=== PATIENT | female | born 1965 | race Caucasian/White ===

== ENCOUNTER → 2017-06-29 | Outpatient (CLI) | payer OTHER | END | disposition home or self-care (01) | LOC: US 09:40 | DX: M79.605 Pain in left leg (principal) | CPT/HCPCS: 93971 ==

== ENCOUNTER 2018-03-04 16:47 | Emergency (ER) | payer OTHER ==
[~2018-03-04] VITALS: Ht 154.9 cm; Wt 86.2 kg
[2018-03-04 17:00] VITALS: BP 170/81
[2018-03-04] MEDS ORDERED: SULF1TAB24 PO (17:13)
--- NOTE | 2018-03-04 17:13 | PHYS DOC ---
Adult General Chief Complaint Chief Complaint: INSECT BITE HPI HPI Patient is a 52-year-old female who presents with complaint of insect bite to her right thigh that she noticed yesterday. Patient states that today she noticed that she has a burning feeling to the area and there is now some mild bruising as well as redness to the area. She denies any fever. Review of Systems Review of Systems Constitutional: Denies fever or chills [] Respiratory: Denies cough or shortness of breath [] Cardiovascular: Denies chest pain[] Integument: Positive erythema tenderness and swelling[] All other systems were reviewed and found to be within normal limits, except as documented in this note. Physical Exam Physical Exam Constitutional: Well developed, well nourished, no acute distress, non-toxic appearance. [] Neck: Normal range of motion, no tenderness, supple, no stridor. [] Cardiovascular:Heart rate regular rhythm, no murmur [] Lungs & Thorax: Bilateral breath sounds clear to auscultation [] Skin: Right anterior thigh demonstrates approximately 3-4 cm area of erythema, mild swelling and induration without fluctuance. [] Extremities: No tenderness, no cyanosis, no clubbing, ROM intact, no edema. [] EKG EKG [] Radiology/Procedures Radiology/Procedures [] Course & Med Decision Making Course & Med Decision Making Pertinent Labs and Imaging studies reviewed. (See chart for details) [] Dragon Disclaimer Dragon Disclaimer This electronic medical record was generated, in whole or in part, using a voice recognition dictation system. Departure Departure Impression: Primary Impression: Insect bite Disposition: 01 HOME, SELF-CARE Condition: STABLE Referrals: SCOOBY OSMAN APRN (PCP) Patient Instructions: Insect Bite Scripts Sulfamethoxazole/Trimethoprim (BACTRIM DS TABLET) 1 Each Tablet 1 TAB PO BID, #20 TAB Prov: BRISEYDA CUADRA Jr. DO 03/04/18 Problem Qualifiers Primary Impression: Insect bite Encounter type: initial encounter Qualified Codes: W57.XXXA - Bitten or stung by nonvenomous insect and other nonvenomous arthropods, initial encounter BRISEYDA CUADRA Jr. DO Mar 04, 2018 17:13
== END 2018-03-04 17:25 | disposition home or self-care (01) ==
LOC: ER 16:47
DX: S70.361A Insect bite (nonvenomous), right thigh, initial encounter (principal); W57.XXXA Bitten or stung by nonvenomous insect and other nonvenomous arthropods, initial encounter; Y93.89 Activity, other specified; Y92.89 Other specified places as the place of occurrence of the external cause; Y99.8 Other external cause status
CPT/HCPCS: 99283

== ENCOUNTER → 2018-09-12 | Outpatient (CLI) | payer OTHER ==
[~2018-09-12] MED LIST: SULF1TAB24 PO
--- NOTE | 2018-09-12 17:37 | KCIC ---
SHOULDER 2+V RIGHT History: Right shoulder pain. [place] a pop.. No evidence of an acute fracture. No aggressive bone destruction. Joint spaces are intact. IMPRESSION: No acute fracture or dislocation. Electronically signed by: Adama Gutierrez MD (09/12/2018 5:34 PM) [facility]
== END | disposition home or self-care (01) ==
LOC: KCIC 14:54
PROVIDERS: ATTEND Nurse Practitioner Family
DX: M25.511 Pain in right shoulder (principal)
CPT/HCPCS: 73030

== ENCOUNTER → 2019-02-13 | Outpatient (CLI) | payer OTHER ==
--- NOTE | 2019-02-13 17:13 | KCIC ---
CT STUDY OF THE RIGHT SHOULDER WITHOUT CONTRAST Clinical indications: Right shoulder pain. Decreased range of motion. TECHNIQUE: Noncontrast helical CT scanning of the right shoulder was performed. Multiplanar 2-D reconstructions were generated. PQRS compliance Statement One or more of the following individualized dose reduction techniques were utilized for this study: 1. Automated exposure control 2. Adjustment of the mA and/or kV according to patient size 3. Use of iterative reconstruction technique FINDINGS: No acute fracture or dislocation or lytic process is evident. No AC joint separation is evident. There is moderate degenerative osteoarthritis and spurring of the right AC joint. There is spurring of the inferior edge of the acromial process. These findings may impinge the acromial humeral space resulting in rotator cuff disease. There is no subdeltoid or subacromial bursal fluid distention otherwise. The glenohumeral joint is unremarkable. No muscle atrophy is evident. No soft tissue mass or abscess is evident. IMPRESSION: No acute osseous abnormality. Moderate degenerative osteoarthritis and spurring of the right AC joint. Spurring of the inferior edge of the acromial process. These findings may impinge the acromial humeral space resulting in rotator cuff disease. Electronically signed by: Juwan Rashid MD (02/13/2019 5:10 PM) [id number]
== END | disposition home or self-care (01) ==
LOC: KCIC CT 15:20
PROVIDERS: ATTEND Nurse Practitioner Family
DX: M19.011 Primary osteoarthritis, right shoulder (principal)
CPT/HCPCS: 73200

== ENCOUNTER → 2019-06-19 | Outpatient (CLI) | payer OTHER ==
--- NOTE | 2019-06-19 10:16 | KCIC ---
Bilateral diagnostic digital mammograms: Reason for examination: Left breast discharge for 3 weeks, milky and bloody. Diffuse breast pain. History of bilateral breast reduction. Comparison is made to previous study dated 08/05/2016. Interpretation was made with the benefit of CAD. The skin and nipples show no abnormalities. No abnormal axillary lymph nodes are seen. The breast parenchyma shows scattered fibroglandular density. (Breast density: Category B.) There continues to be some patchy asymmetric parenchyma at the medial 9:00 C position which is stable. There are no new dominant masses, suspicious calcifications or architectural distortions. Some benign calcifications are present. Impression: No evidence of malignancy. Ultrasound to follow. BI-RADS category 0: Incomplete. Needs additional imaging evaluation Left breast ultrasound: Ultrasound to document resolution of the left breast and axilla was performed. No discrete cystic or solid nodules or architectural distortions are seen. No ductal ectasia or intraductal lesions are identified. No abnormal appearing lymph nodes are seen in the axilla. IMPRESSION: No focal abnormality seen in the left breast. If discharge persists, further evaluation with galactography should be considered. BI-RADS Category 2: Benign. "Our facility is accredited by the [employer] Mammography Program." This patient's information has been entered into a reminder system for the patient to be notified with the results of her examination and a target date for the next mammogram. Electronically signed by: Valeria Noland MD (06/19/2019 10:13 AM) [id number]
== END | disposition home or self-care (01) ==
LOC: KCIC MAMMO 08:15
PROVIDERS: ATTEND Nurse Practitioner Family
DX: N64.89 Other specified disorders of breast (principal)
CPT/HCPCS: 76641; 77066

== ENCOUNTER → 2021-01-12 | Outpatient (CLI) | payer OTHER ==
[~2021-01-12] MED LIST changes: +IOHEXOL 240 MG/ML 50ML VIAL. PO ONE; +IOHEXOL 300 MG/ML 100ML VIAL. IV ONE
--- NOTE | 2021-01-12 10:57 | KCIC ---
EXAM: Abdomen CT with intravenous contrast. HISTORY: Epigastric hernia. TECHNIQUE: Computed tomographic images of the abdomen were obtained following the administration of i ntravenous contrast. Multiplanar reformatting was performed. *One or more of the following individualized dose reduction techniques were utilized for this examina tion: 1. Automated exposure control. 2. Adjustment of the mA and/or kV according to patient size. 3. Use of iterative reconstruction technique. COMPARISON: None. FINDINGS: Evaluation of the lower thorax demonstrates no infiltrate, pleural effusion or suspicious p ulmonary nodule. The heart is normal in size. There is hepatic steatosis and mild hepatomegaly. No fo shai hepatic lesion is seen. The gallbladder is absent. The pancreas, spleen, adrenal glands and kidne ys are unremarkable. There is a fat-containing ventral abdominal wall hernia superior to the umbilicus. The hernia defect measures 2.6 cm in caliber and the hernia sac measures 5.2 cm in caliber. There is no evidence of fat incarceration. There are a few tiny fat-containing ventral abdominal wall hernias superior and infer ior to this location. There is suspected dense calcification or postoperative material along the vent ral abdominal wall to the right of midline possibly due to prior hernia repair. There are changes due to aortic bypass surgery. There are stents within the common iliac arteries. Th ere is partial visualization of a 2.4 cm hypodense lesion within the right iliac chain distribution. There is no suspicious or acute osseous finding. IMPRESSION: 1. Small fat-containing ventral abdominal wall hernia superior to the umbilicus measuring 5.2 cm in m aximum dimension. There are additional tiny fat-containing abdominal hernia is superior and inferior to this location and there are suspected changes due to prior hernia repair. There is no evidence of fat incarceration or herniated loop of bowel. 2. Hepatic steatosis and hepatomegaly. 3. Postoperative changes involving the aorta and iliac bifurcation. 4. 2.4 cm hypodense lesion within the right iliac distribution, possibly due to an ovarian cyst or en larged hypodense lymph node and partially excluded from the [id number]. Pelvic sonography may be u seful for characterization. Electronically signed by: Yvette Josue MD (01/12/2021 10:55 AM) [id number]
== END ==
LOC: KCIC CT 08:29
PROVIDERS: ATTEND Nurse Practitioner Family
DX: K43.9 Ventral hernia without obstruction or gangrene (principal); K76.0 Fatty (change of) liver, not elsewhere classified; R16.0 Hepatomegaly, not elsewhere classified; L43.9 Lichen planus, unspecified; Z90.49 Acquired absence of other specified parts of digestive tract; Z98.890 Other specified postprocedural states
CPT/HCPCS: 74160; Q9966; Q9967; 82565

== ENCOUNTER → 2021-01-20 | Outpatient (CLI) | payer OTHER ==
[~2021-01-20] MED LIST changes: -IOHEXOL 240 MG/ML 50ML VIAL. PO ONE; -IOHEXOL 300 MG/ML 100ML VIAL. IV ONE
--- NOTE | 2021-01-20 16:36 | RAD ---
EXAM: Pelvic sonogram. HISTORY: Ovarian cyst on CT. TECHNIQUE: Transabdominal sonographic imaging of the pelvis was performed. COMPARISON: CT dated 01/12/2021. FINDINGS: The uterus is surgically absent. The ovaries are normal in size and demonstrate normal bloo d flow. No ovarian cyst or mass is seen. There is no pelvic free fluid. The vaginal cuff is unremarka ble. IMPRESSION: 1. Surgically absent uterus. 2. Unremarkable ovaries. 3. No correlate for a 2.4 cm hypodense lesion within the right iliac distribution on the prior CT. Th is may be sonographically occult due to location. This does not appear to be ovarian in etiology. Electronically signed by: Yvette Josue MD (01/20/2021 4:34 PM) [id number]
== END ==
LOC: US 14:18
PROVIDERS: ATTEND Nurse Practitioner Family
DX: N83.209 Unspecified ovarian cyst, unspecified side (principal); Z90.710 Acquired absence of both cervix and uterus
CPT/HCPCS: 76856

== ENCOUNTER 2021-03-11 08:02 | Day surgery (SDC) | payer OTHER ==
[~2021-03-11] VITALS: Ht 157.5 cm; Wt 93.0 kg
[~2021-03-11 08:02] MED LIST changes: +ACETAMINOPHEN 500 MG TABLET PO PRN; +BUPIVACAINE-EPI 0.25%-1:200000 MPF 30 ML VIAL. ONE; +FLUO20CA20 PO; +HYDROmorphone 2 MG/ML VIAL IVP PRN; +LOSA100T14 PO; +MINERAL OIL for SURGERY 10 ML VIAL. MC ONE; +MORPHINE SULFATE 2 MG/ML INJ. IVP PRN; +PANT40TA77 PO; +PROCHLORPERAZINE 10 MG/2 ML VIAL. IVP PRN; +fentaNYL PF VIAL 100 MCG/2 ML VIAL IVP PRN
[2021-03-11] MEDS ORDERED: CLOP75TA PO (08:25)
[2021-03-11] MEDS ORDERED: DAPA5TAB PO (08:25)
[2021-03-11] MEDS ORDERED: ATOR20TA58 PO (08:25)
[2021-03-11] MEDS: IV RINGERS,LACTATED 1000ML 1,000 ML IV SCH ×2 (08:44→11:53)
[2021-03-11] MEDS: INSULIN LISPRO 100 UNIT/ML 3ML VIAL for OP,RR ONLY. SQ PRN ×3 (08:48→13:17)
[2021-03-11] MEDS ORDERED: ROCURONIUM 50 MG/5 ML VIAL. ONE (08:57)
[2021-03-11] MEDS ORDERED: MIDAZOLAM HCL/PF 2 MG/2 ML VIAL. ONE (08:58)
[2021-03-11] MEDS ORDERED: fentaNYL PF VIAL 100 MCG/2 ML VIAL ONE ×3 (08:58→12:34)
[2021-03-11] MEDS ORDERED: LIDOCAINE 2% PF 5 ML VIAL. ONE (09:01)
[2021-03-11] MEDS ORDERED: NEOSTIGMINE METHYLSULFATE 5 MG/5 ML SYRINGE. ONE (09:01)
[2021-03-11] MEDS ORDERED: PROPOFOL 10 MG/ML (20ML) VIAL. IV ONE (09:01)
[2021-03-11] MEDS ORDERED: GLYCOPYRROLATE 1 MG/5 ML VIAL. ONE (09:01)
--- NOTE | 2021-03-11 09:16 | PDOC1 ---
History and Physical Date of Admission Date of Admission DATE: 03/11/21 TIME: 09:09 Identification/Chief Complaint Chief Complaint Painful abdominal bulge Source Source: Patient History of Present Illness History of Present Illness 55-year-old female with complaints of a painful bulge just above her umbilicus been present for approximately 6 months she has a well-healed midline scar CT scan shows 5 cm ventral hernia with possible second hernia below the larger hernia Past Medical History Cardiovascular: HTN, Other (Peripheral vascular disease) GI: GERD Past Surgical History Past Surgical History: Cholecystectomy, , Hysterectomy, Other (Breast reduction right ankle fusion femoral bypass knee arthroscopy) Family History Family History: No Significant Social History Smoke: No ALCOHOL: none Drugs: None Current Medications Current Medications Current Medications Cefazolin Sodium/ Dextrose 50 ml @ 100 mls/hr 1X PREOP PRN IV PRIOR TO PROCEDURE; Start 03/11/21 at 06:00; Stop 03/11/21 at 18:00 Acetaminophen (Tylenol) 1,000 mg 1X PREOP PRN PO PRIOR TO PROCEDURE Last administered on 03/11/21at 08:44; Start 03/11/21 at 06:00 Fentanyl Citrate (Fentanyl 2ml Vial) 25 mcg PRN Q5MIN PRN IVP MILD PAIN 1-3; Start 03/11/21 at 06:00; Stop 03/12/21 at 05:59 Fentanyl Citrate (Fentanyl 2ml Vial) 50 mcg PRN Q5MIN PRN IVP MODERATE PAIN 4- 6; Start 03/11/21 at 06:00; Stop 03/12/21 at 05:59 Morphine Sulfate (Morphine Sulfate) 1 mg PRN Q10MIN PRN IVP SEVERE PAIN 7-10; Start 03/11/21 at 06:00; Stop 03/12/21 at 05:59; Status UNV Ringer's Solution 1,000 ml @ 30 mls/hr Q24H IV Last administered on 03/11/21at 08:44; Start 03/11/21 at 06:00; Stop 03/11/21 at 17:59 Hydromorphone HCl (Dilaudid) 0.5 mg PRN Q10MIN PRN IVP SEVERE PAIN 7-10, 2nd CHOICE; Start 03/11/21 at 06:00; Stop 03/12/21 at 05:59 Prochlorperazine Edisylate (Compazine) 5 mg PACU PRN PRN IVP NAUSEA, MRX1; S tart 03/11/21 at 06:00; Stop 03/12/21 at 05:59 Mineral Oil (Muri-Lube) 10 ml STK-MED ONCE MC ; Start 03/11/21 at 07:13; Stop 03/11/21 at 07:13; Status DC Bupivacaine HCl/ Epinephrine Bitart (Sensorcaine-Epi 0.25%-1:052960 Mpf) 30 ml STK-MED ONCE .ROUTE ; Start 03/11/21 at 07:13; Stop 03/11/21 at 07:13; Status DC Insulin Human Lispro (HumaLOG VIAL for OP,RR ONLY) 0-10 units PRN Q1HR PRN SQ PER PROTOCOL Last administered on 03/11/21at 08:48; Start 03/11/21 at 08:45; Stop 03/12/21 at 08:44 Rocuronium [place] (Zemuron) 50 mg STK-MED ONCE .ROUTE ; Start 03/11/21 at 08:57; Stop 03/11/21 at 08:58; Status DC Fentanyl Citrate (Fentanyl 2ml Vial) 100 mcg STK-MED ONCE .ROUTE ; Start 03/11/21 at 08:58; Stop 03/11/21 at 08:58; Status DC Midazolam HCl (Versed) 2 mg STK-MED ONCE .ROUTE ; Start 03/11/21 at 08:58; Stop 03/11/21 at 08:58; Status DC Lidocaine HCl (Lidocaine Pf 2% Vial) 5 ml STK-MED ONCE .ROUTE ; Start 03/11/21 at 09:01; Stop 03/11/21 at 09:01; Status DC Propofol (Diprivan) 200 mg STK-MED ONCE IV ; Start 03/11/21 at 09:01; Stop 03/11/21 at 09:01; Status DC Neostigmine [place] (Neostigmine Methylsulfate) 5 mg STK-MED ONCE .ROUTE ; Start 03/11/21 at 09:01; Stop 03/11/21 at 09:01; Status DC Glycopyrrolate (Robinul) 1 mg STK-MED ONCE .ROUTE ; Start 03/11/21 at 09:01; Stop 03/11/21 at 09:02; Status DC Active Scripts Active Reported Clopidogrel (Clopidogrel Bisulfate) 75 Mg Tablet 75 Mg PO DAILY Atorvastatin Calcium 20 Mg Tablet 20 Mg PO HS Farxiga (Dapagliflozin Propanediol) 5 Mg Tablet 5 Mg PO DAILY Pantoprazole Sodium (Pantoprazole Sodium) 40 Mg Tablet.dr 40 Mg PO DAILYAC Fluoxetine Hcl 20 Mg Capsule 1 Cap PO DAILY Losartan Potassium 100 Mg Tablet 100 Mg PO DAILY Allergies Allergies: Coded Allergies: morphine (Verified Allergy, Intermediate, Itching, 03/11/21) hydrocodone (Verified Allergy, Mild, Anxiety, 03/11/21) ROS Gastrointestinal: Yes Abdominal Pain Physical Exam General: Alert, Oriented X3, Cooperative, No acute distress HEENT: Atraumatic, EOMI Lungs: Clear to auscultation, Normal air movement Heart: RRR, no murmurs Abdomen: Normal bowel sounds, Soft, Other (Palpable bulge just above the umbilicus tender to palpation no skin changes well-healed midline scar) Rectal Exam: not examined Extremities: No edema Skin: No significant lesion Neuro: Normal speech Psych/Mental Status: Mental status NL Vitals Vitals Vital Signs Date Time Temp Pulse Resp B/P (MAP) Pulse Ox O2 Delivery O2 Flow Rate FiO2 03/11/21 08:26 97.3 81 20 142/66 95 Room Air 97.3 VTE Prophylaxis Ordered VTE Prophylaxis Devices: Yes VTE Pharmacological Prophylaxi: Contraindicated Assessment/Plan Assessment/Plan Ventral incisional hernia plan robotic assisted laparoscopic repair with mesh Justifications for Admission Other Justification ANDREINA ASHER MD Mar 11, 2021 09:16
[2021-03-11] MEDS ORDERED: KETAMINE HCL IN NACL, ISO-OSM 50 MG/5 ML SYRINGE ONE (09:51)
[2021-03-11] MEDS ORDERED: ePHEDrine PF IN SALINE 50 MG/10 ML SYRINGE. IV ONE (10:03)
[2021-03-11] MEDS ORDERED: BUPIVACAINE-EPI 0.25%-1:200000 MPF 30 ML VIAL. INJ ONE (10:20)
--- NOTE | 2021-03-11 11:06 | PDOC4 ---
Operative Note Operative Note Date: March 112020 at 1100 Preoperative diagnosis: Incisional ventral hernia Postoperative diagnosis: Same Procedure: Robotic assisted laparoscopic ventral hernia repair with mesh Surgeon: Madhu Specimen: None Dictation: Patient is a 55-year-old female with complaints of a painful bulge in the midline of her abdomen present after she had a abdominal surgery for femoral artery bypass. The procedure of robotic assisted laparoscopic ventral hernia repair with mesh was explained to the patient detail risk-benefit were also discussed including bleeding infection injury to intra-abdominal contents possible necessitating further open operations alternatives to this procedure also discussed with the patient who seemed to understand and gave a verbal written consent to have procedure performed. Patient was taken to the operating room placed in the supine position general anesthesia was initiated once patient was sleeping intubated her abdomen was prepped and draped usual sterile fashion using ChloraPrep. An area in the left upper quadrant was injected quarter percent Marcaine with epinephrine incision was made 11 blade scalpel and a 5 mm Visiport was placed under direct visualization into the abdomen and pneumoperitoneum was then created once this was complete a 5 mm camera is placed within the abdomen which was inspected was noted there is quite a few adhesions to the anterior abdominal wall. 8 mm da [place]ac[place] port was placed in the left midabdomen a 8 mm da Zacarias ports placed in left lower abdomen and the 5 mm Visiport was changed out for 8 mm da Zacarias port. The da Zacarais robot is brought and docked all port sites surgeon went to the robotic console using a grasper and Endo Tanner scissors the adhesions were taken down sharply exposing the midline hernia there were several small hernias and a [place] cheese kind pattern. The hernias were closed with a running 2 OV lock nonabsorbable suture. Once this was complete a Bard ventral light ST mesh with barrier was placed within the abdomen over the closed hernia defects this was sewn into place circumferentially with a running 2 OV lock absorbable suture a 2 OV lock absorbable suture was also used to tack the midportion of the mesh to the fascia. All the sutures removed from the abdomen the da [place]acarias robot was undocked from all port sites pneumoperitoneum was reduced all ports were removed all port sites were closed with 4 subcuticular Monocryl Mastisol Steri-Strips and island dressings were applied. Patient was awakened and extubated in the operating room taken to recovery in stable condition all sponge instrument needle counts listed as correct estimated blood loss 10 mL ANDREINA ASHER MD Mar 11, 2021 11:06
[2021-03-11] MEDS ORDERED: OXYC-325 PO (11:07)
--- NOTE | 2021-03-11 11:10 | DISCH ---
DISCHARGE INSTRUCTIONS Condition on Discharge Condition on Discharge: Stable Activity After Discharge Activity Instructions for Disc: Avoid exertion Other activity instructions: No lifting more than 20 pounds for 2 weeks Diet after Discharge Diet after Discharge: Regular Wound Incision Care Other wound/incision instructi: Connie shower in 24-hour Contacting the after DC Call your doctor for: If your condition worsens Follow-Up Follow up with: Dr. Asher in 2-week ANDREINA ASHER MD Mar 11, 2021 11:10
[2021-03-11] MEDS ORDERED: oxyCODONE/APAP 5/325 1 TAB TABLET PO ONE (12:00)
[2021-03-11] MEDS ORDERED: ALBUTEROL SULFATE 2.5 MG/3 ML NEBU. NEB ONE (12:15)
[2021-03-11] MEDS ORDERED: KETOROLAC 30 MG/ML VIAL. ONE (12:34)
[2021-03-11] MEDS ORDERED: PROCHLORPERAZINE 10 MG/2 ML VIAL. ONE (12:42)
[2021-03-11] MEDS ORDERED: KETOROLAC 30 MG/ML VIAL. IVP ONE (12:45)
[2021-03-11] MEDS ORDERED: INSULIN LISPRO 100 UNIT/ML 3ML VIAL for OP,RR ONLY. SQ ONE ×3 (13:20)
[2021-03-11] MEDS ORDERED: ALBUTEROL SULFATE 2.5 MG/3 ML NEBU. ONE (13:30)
[2021-03-11 13:36] VITALS: BP 115/65
== END 2021-03-11 13:59 | disposition home or self-care (01) ==
LOC: SURG 08:02
PROVIDERS: ATTEND Surgery
DX: K43.2 Incisional hernia without obstruction or gangrene (principal); K66.0 Peritoneal adhesions (postprocedural) (postinfection); I25.10 Atherosclerotic heart disease of native coronary artery without angina pectoris; I10 Essential (primary) hypertension; E78.00 Pure hypercholesterolemia, unspecified; G47.30 Sleep apnea, unspecified; E66.9 Obesity, unspecified; K21.9 Gastro-esophageal reflux disease without esophagitis; E11.9 Type 2 diabetes mellitus without complications; F17.210 Nicotine dependence, cigarettes, uncomplicated; F32.9 Major depressive disorder, single episode, unspecified; Z90.49 Acquired absence of other specified parts of digestive tract; Z98.890 Other specified postprocedural states; Z79.899 Other long term (current) drug therapy; Z90.710 Acquired absence of both cervix and uterus; Z88.6 Allergy status to analgesic agent; Z88.8 Allergy status to other drugs, medicaments and biological substances
CPT/HCPCS: 49654; 94640; J0690; J0780; J1885; J2250; J2704; J2710; J3010; J3490; J7613; S2900; A4364; A4657; A4930; A6219; C1781; J1815